=== PATIENT | female | born 2000 | race Caucasian/White ===

== ENCOUNTER 2024-01-15 15:09 | Emergency (ER) | payer OTHER, SELFPAY ==
[2024-01-15 15:21] VITALS: BP 119/68; PULSE 95; RESP 18; TEMP 36.6; O2SAT 100
[2024-01-15 15:53] LABS: EDSTREPNEGPOS1 Negative (Negative)
--- NOTE | 2024-01-15 15:53 | ED.GENADULT ---
HPI - General Adult General Chief complaint: Upper Respiratory Infection Stated complaint: Fever/Sore Throat Source: patient Mode of arrival: ambulatory Limitations: no limitations History of Present Illness HPI narrative: Pt presents for evaluation of sinus symptoms and sore throat. Symptom onset three days ago. Nasal discharge is thick yellow/green. She states her temperature at home was 101? F. She denies any nausea, vomiting, cough or SOB. No recent sick contacts to her knowledge. She took ibuprofen for her symptoms. She does vape an electronic cigarette. Related Data Home Medications Medication Instructions Recorded Confirmed levothyroxine 50 mcg tablet mcg 01/15/24 sertraline 50 mg tablet mg 01/15/24 Allergies Allergy/AdvReac Type Severity Reaction Status Date / Time No Known Allergies Allergy Unverified 12/05/12 18:53 Review of Systems Review of Systems: CONSTITUTIONAL: Reports fever. Denies chills, or sweats. EYES: Denies visual changes, redness, or discharge. ENT: Reports sore throat, sinus congestion, mucopurulent discharge from the nares. Denies otalgia CARDIOVASCULAR: Denies chest pain, palpitations, or edema. RESPIRATORY: Denies cough or dyspnea. GASTROINTESTINAL: Denies abdominal pain, nausea, vomiting, or diarrhea. GENITOURINARY: Denies dysuria or hematuria. SKIN: Denies rash or itching. MUSCULOSKELETAL: Denies back pain, joint pain, or myalgia. NEUROLOGIC: Denies headache, numbness, dizziness, or weakness. PSYCHIATRIC: Denies anxiety or depression. [facility] Past Medical History Medical History No pertinent past medical history Surgical History Surgical History (Updated 01/15/24 @ 15:59 by ES Pride, ) No pertinent past surgical history Family History Family History Mother Family history non-contributory Social History Social History Smoking status: Current every day smoker Tobacco type: e-cigarettes/vaping Substance use: never Do You Feel Safe in your Home?: Yes Living arrangements: alone Gender identity (if verbalized by the patient): Female Spiritual care concerns: No Exam Narrative: GENERAL: Well-appearing, well-nourished, and in no acute distress. HEAD: Normocephalic, atraumatic. EYES: PERRLA and EOMI. ENT: There is frontal and bilateral maxillary sinus tenderness. There is thick yellow drainage in bilateral nares. Mucous membranes moist. Bilateral tonsillar enlargement and erythema. No exudate. Bilateral TMs pearly rodríguez nonbulging NECK: Supple. No adenopathy or masses. No carotid bruits or JVD CHEST: Clear to auscultation. No respiratory distress. No wheezes rales or rhonchi HEART: Regular rate and rhythm. No murmur heard. Normal peripheral pulses. ABDOMEN: Soft, nontender, nondistended, normal active bowel sounds. EXTREMITIES: Normal range of motion. No edema. SKIN: Warm, dry, no rash. NEURO: No focal deficits. Alert and oriented x3. PSYCH: Normal mood and affect. Course Course Emergency Course: This is a 23-year-old female who presented for evaluation of sore throat and sinus symptoms. She meets criteria for ABRS based upon mucopurulent nature of the discharge and fever. Will treat with Augmentin. Strep was negative. Will send throat culture. Follow-up with primary provider. Advised not to vape. Go to the ER for worsening symptoms. Pt in agreement with plan of care. Level of Care: Express Care Visit Vital Signs Vital signs: Vital Signs Temperature 36.6 C 01/15/24 15:21 Pulse Rate 95 01/15/24 15:21 Respiratory Rate 18 01/15/24 15:21 Blood Pressure 119/68 01/15/24 15:21 Pulse Oximetry 100 01/15/24 15:21 Oxygen Delivery Room Air 01/15/24 15:21 Temperature 36.6 C 01/15/24 15:21 Pulse Rate 95 01/14/
== END 2024-01-15 15:57 | disposition home or self-care (01) ==
PROVIDERS: Emergency Provider Nurse Practitioner; PCP Nurse Practitioner
DX: J01.90 Acute sinusitis, unspecified (principal); J02.9 Acute pharyngitis, unspecified; F17.290 Nicotine dependence, other tobacco product, uncomplicated
CPT/HCPCS: 87081; 87880; 99213; G0463

== ENCOUNTER 2024-09-01 16:51 | Emergency (ER) | payer OTHER, SELFPAY ==
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
[2024-09-01 17:08] VITALS: BP 134/94; PULSE 96; RESP 16; TEMP 37.1; O2SAT 100
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
--- OUTSIDE RECORDS SUMMARY | 2024-09-01 17:26 | XMS_ITS | Referral Summary ---
Author Organization [facility] Address [address] [place] [address] Care Team Providers Care Life Agent Name Role Phone Anna Toledo NP Primary Care Provider [phone] Allergies No known active allergies Medications levothyroxine (SYNTHROID) 50 mcg tabletIndications :Hypothyroidism, unspecified type Take 1 tablet (50 mcg total) by mouth daily 90 tablet 5 05/16/19 26 Active atomoxetine (STRATTERA) 40 mg capsuleIndication s:Attention-Defic it Hyperactivity Disorder Take 1 capsule (40 mg total) by mouth daily 30 capsule 11 5 05/16/19 26 Active sertraline (ZOLOFT) 50 mg tabletIndications :Anxiety,Mild episode of recurrent major depressive disorder Take 1 tablet (50 mg total) by mouth daily 90 tablet 1 5 08/05/19 26 Active sertraline (ZOLOFT) 50 mg tabletIndications :Anxiety,Mild episode of recurrent major depressive disorder Take 1 tablet (50 mg total) by mouth daily 90 tablet 1 4 08/05/19 25 Discontinu ed(Reorder ) Active Problems Problem Noted Date Diagnosed Date Attention deficit hyperactiv ity disorder (ADHD), predominantly inattentive type 07/31/2023 Assessment & Plan (07/31/2023 8:34 AM CDT): Not well controlled 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 noticed that she is having difficulty staying focused and completing tasks Difficulty taking a long list of directions and following through Start Strattera 40 mg daily Follow up 3 months Hypothyroidism 05/01/2023 Assessment & Plan (05/01/2023 10:06 AM AUTOMOTIVE SALES REPRESENTATIVE): TSH elevated at 7.26 Start Levothyroxine 50 mcg daily Repeat Thyroid US to compare to 2019-cysts on left lobe Repeat TSH 3 months Vitamin D deficiency 08/16/2021 Anxiety 08/15/2021 Assessment & Plan (07/31/2023 8:28 AM CDT): Chronic, stable, well controlled Seeing results with increased dose Continue Sertraline 50 mg daily Assessment & Plan (05/01/2023 10:05 AM AUTOMOTIVE SALES REPRESENTATIVE): Stable, patient seeing improvement with medication Would like to try increasing medication to get better results Increase Sertraline 50 mg daily Follow up 3 months Assessment & Plan (03/21/2023 12:37 PM AUTOMOTIVE SALES REPRESENTATIVE): Not currently well-controlled; patient states she is always had anxiety Patient would like to start an antidepressant; states Zoloft has worked for her in the past. She does not want to take a mood stabilizer at this time Start sertraline 25 mg daily; discussed potentially adding BuSpar at next visit Follow-up 6-8 weeks Assessment & Plan (2021 2:17 PM CDT): Patient reiterated no suicidal thoughts at this time; take medication as directed; contact 911 and go to the ER if becomes suicidal; discussed side effects of medication with patient; encouraged healthy diet and exericise; encouraged patient to see a counselor HPI: Condition is not at goal. Pt was in ER for suicidal ideation on 09/13/2021. Nothing precipitated the episode, she just felt really down. A&P: Discussed/ordered labs, encouraged healthy, low carbohydrate lifestyle and at least 150min/week of exercise, At last office visit we trial patient on sertraline 50 mg daily. She at first felt like she had more energy, but not to a manic level. Then 2 wks later she felt really down again. We will increase the sertraline to 100mg daily. We will also add in lamictal. We will wean up your dose. Start at 25mg daily x 2 wks, then 50mg x 2 wks, then 100mg x 2 wks, then return to clinic where will up to 150mg as maintenance dose. Recommend seeing [facility] for counseling/psychiatrist. also instructed patient to work on biofeedback I would like you to work on biofeedback. You can download an dang on your phone. Examples would be headspace, calm. Please work on this every day. It is similar to if you were a musician with a big performance coming up. You would practice your instrument every day so that on the day of the big performance, you don't even have to think about playing. This works the same way for using the biofeedback to bring you down from those high stress/anxiety moments. If you practice using the biofeedback skills daily, it will become a second nature and you will be able to help yourself more effectively. Assessment & Plan (08/15/2021 12:55 PM CDT): Patient reiterated no suicidal thoughts at this time; take medication as directed; contact 911 and go to the ER if becomes suicidal; discussed side effects of medication with patient; encouraged healthy diet and exericise; encouraged patient to see a counselor HPI: Condition is not at/near goal A&P: pt has failed on lexapro in the past. We will trial on sertraline 50mg daily. I would like you to work on biofeedback. You can download an dang on your phone. Examples would be headspace, calm, [id number], Personal Arvin. Please work on this every day. It is similar to if you were a musician with a big performance coming up. You would practice your instrument every day so that on the day of the big performance, you don't even have to think about playing. This works the same way for using the biofeedback to bring you down from those high stress/anxiety moments. If you practice using the biofeedback skills daily, it will become a second nature and you will be able to help yourself more effectively. Mild episode of recurrent major depressive disor wade 08/15/2021 Assessment & Plan (07/31/2023 8:33 AM CDT): Chronic, stable, well controlled Seeing results with increased dose Continue Sertraline 50 mg daily Assessment & Plan (05/01/2023 10:05 AM AUTOMOTIVE SALES REPRESENTATIVE): Stable, patient seeing improvement with medication Would like to try increasing medication to get better results Increase Sertraline 50 mg daily Follow up 3 months Assessment & Plan (03/21/2023 12:37 PM AUTOMOTIVE SALES REPRESENTATIVE): Not currently well-controlled; patient states she is always had anxiety Patient would like to start an antidepressant; states Zoloft has worked for her in the past. She does not want to take a mood stabilizer at this time Start sertraline 25 mg daily; discussed potentially adding BuSpar at next visit Follow-up 6-8 weeks Assessment & Plan (2021 2:17 PM CDT): Patient reiterated no suicidal thoughts at this time; take medication as directed; contact 911 and go to the ER if becomes suicidal; discussed side effects of medication with patient; encouraged healthy diet and exericise; encouraged patient to see a counselor HPI: Condition is not at goal. Pt was in ER for suicidal ideation on 09/13/2021. Nothing precipitated the episode, she just felt really down. A&P: Discussed/ordered labs, encouraged healthy, low carbohydrate lifestyle and at least 150min/week of exercise, At last office visit we trial patient on sertraline 50 mg daily. She at first felt like she had more energy, but not to a manic level. Then 2 wks later she felt really down again. We will increase the sertraline to 100mg daily. We will also add in lamictal. We will wean up your dose. Start at 25mg daily x 2 wks, then 50mg x 2 wks, then 100mg x 2 wks, then return to clinic where will up to 150mg as maintenance dose. Recommend seeing [facility] for counseling/psychiatrist. also instructed patient to work on biofeedback I would like you to work on biofeedback. You can download an dang on your phone. Examples would be headspace, calm. Please work on this every day. It is similar to if you were a musician with a big performance coming up. You would practice your instrument every day so that on the day of the big performance, you don't even have to think about playing. This works the same way for using the biofeedback to bring you down from those high stress/anxiety moments. If you practice using the biofeedback skills daily, it will become a second nature and you will be able to help yourself more effectively. Assessment & Plan (08/15/2021 12:51 PM CDT): Patient reiterated no suicidal thoughts at this time; take medication as directed; contact 911 and go to the ER if becomes suicidal; discussed side effects of medication with patient; encouraged healthy diet and exericise; encouraged patient to see a counselor HPI: Condition is not at/near goal A&P: pt has failed on lexapro in the past. We will trial on sertraline 50mg daily. I would like you to work on biofeedback. You can download an dang on your phone. Examples would be headspace, calm, [id number], Personal Arvin. Please work on this every day. It is similar to if you were a musician with a big performance coming up. You would practice your instrument every day so that on the day of the big performance, you don't even have to think about playing. This works the same way for using the biofeedback to bring you down from those high stress/anxiety moments. If you practice using the biofeedback skills daily, it will become a second nature and you will be able to help yourself more effectively. PTSD (post-traumatic stress disorder) 02/09/2017 Assessment & Plan (2021 2:17 PM CDT): Patient reiterated no suicidal thoughts at this time; take medication as directed; contact 911 and go to the ER if becomes suicidal; discussed side effects of medication with patient; encouraged healthy diet and exericise; encouraged patient to see a counselor HPI: Condition is not at goal. Pt was in ER for suicidal ideation on 09/13/2021. Nothing precipitated the episode, she just felt really down. A&P: Discussed/ordered labs, encouraged healthy, low carbohydrate lifestyle and at least 150min/week of exercise, At last office visit we trial patient on sertraline 50 mg daily. She at first felt like she had more energy, but not to a manic level. Then 2 wks later she felt really down again. We will increase the sertraline to 100mg daily. We will also add in lamictal. We will wean up your dose. Start at 25mg daily x 2 wks, then 50mg x 2 wks, then 100mg x 2 wks, then return to clinic where will up to 150mg as maintenance dose. Recommend seeing [facility] for counseling/psychiatrist. also instructed patient to work on biofeedback I would like you to work on biofeedback. You can download an dang on your phone. Examples would be headspace, calm. Please work on this every day. It is similar to if you were a musician with a big performance coming up. You would practice your instrument every day so that on the day of the big performance, you don't even have to think about playing. This works the same way for using the biofeedback to bring you down from those high stress/anxiety moments. If you practice using the biofeedback skills daily, it will become a second nature and you will be able to help yourself more effectively. Immunizations Immunization Administration Dates Next Due DTaP, Unspecified 07/29/2004, 2,04/03/2000,01/27/2000 ,1999 HPV, Quadrivalent 12/02/2013,11/29/2012 Hep A, Pediatric 12/02/2013,11/29/2012 Hep B, Unspecified 07/02/2000,1999 HiB 12/28/2000,04/03/2000,01/27/2000 ,1999 IPV 07/29/2004,04/24/2001,01/27/2000 ,1999 Influenza, Unspecified 07/23/2023(Deferr ed: Patient Refused),03/21/2023(Deferred: Patient Refused),02/22/2023(Deferred: Patient Refused),01/21/2022(Deferred: Patient Refused),01/21/2022(Deferred: Patient Refused),01/21/2021(Deferred: Patient Refused),01/22/2020(Deferred: Patient Refused) MMR 07/29/2004,12/28/2000 Meningococcal B, OMV (Bexsero) 02/13/2019 Meningococcal Conjugate (Menveo) 01/03/2017,10/21 Pneumococcal, Unspecified 04/24/2001,2000, 04/03/2000 Tdap 11/16/2010 Social History Tobacco Use Types Packs/Day Years Used Date Smoking Tobacco: Former Cigarettes Q uit: 04/23/2023 Smokeless Tobacco: Never Comments:vape Alcohol Use Standard Drinks/Week Comments Not Currently 0 (1 standard drink = 0.6 oz pur e alcohol) [facility] [employer] Answer Date Recorded In the past 12 months has e [employer], gas, oil, or water [employer] threatened to shut off services in your home? No 07/31/2023 Humiliation, Afraid, Rape, and Kick questionnair e Answer Date Recorded Within the last year, have y ou been afraid of your partner or ex-partner? No 07/31/2023 Within the last year, have y ou been humiliated or emotionally abused in other ways by your partner or ex-partner? No Within the last year, have y ou been kicked, hit, slapped, or otherwise physically hurt by your partner or ex-partner? No 07/31/2023 Within the last year, have y ou been raped or forced to have any kind of sexual activity by your partner or ex-partner? No 07/31/2023 Social Connection and Isolation Panel [NHANES] A nswer Date Recorded In a typical week, how many times do you talk on the phone with family, friends, or neighbors? Twice a week 07/31/2023 How often do you get together with friends or re latives? Twice a week 07/31/2023 How often do you attend bahai or jainism serv ices? Never 07/31/2023 Do you belong to any clubs o r organizations such as bahai groups, unions, fraternal or athletic groups, or school groups? No 07/31/2023 How often do you attend meet ings of the clubs or organizations you belong to? Never 07/31/2023 Are you , , di vorced, , never , or living with a partner? Never 07/31/2023 AUDIT-C Answer Date Recorded Q1: How often do you have a drink containing alc ohol? 2-3 times a week 07/31/2023 Q2: How many drinks containi ng alcohol do you have on a typical day when you are drinking? 1 or 2 07/31/2023 Q3: How often do you have si x or more drinks on one occasion? Never 07/31/2023 Overall Financial Resource Strain (CARDIA) Answe r Date Recorded How hard is it for you to pa y for the very basics like food, housing, medical care, and heating? Not hard at all 07/31/2023 PHQ-2 Answer Date Recorded PHQ-2 Total Score (If total score is 3 or more points, staff should administer the PHQ-9) 0 07/31/2023 [facility] - Occupational Stress Questionnaire Answer Date Recorded Do you feel stress - tense, restless, nervous, or anxious, or unable to sleep at night because your mind is troubled all the time - these days? To some extent 07/31/2023 Exercise Vital Sign Answer Date Recorde d On average, how many days pe r week do you engage in moderate to strenuous exercise (like a brisk walk)? 5 days 07/31/2023 On average, how many minutes do you engage in exercise at this level? 60 min 07/31/2023 Hunger Vital Sign Answer Date Recorded Within the past 12 months, y ou worried that your food would run out before you got the money to buy more. Never true 07/31/19 24 Within the past 12 months, t he food you bought just didn't last and you didn't have money to get more. Never true 07/31/2023 PRAPARE - Transportation Answer Date Re corded In the past 12 months, has l ack of transportation kept you from medical appointments or from getting medications? No 12/2023 In the past 12 months, has l ack of transportation kept you from meetings, work, or from getting things needed for daily living? No 07/31/2023 Housing Stability Vital Sign Answer Eleazar e Recorded In the last 12 months, was t here a time when you were not able to pay the mortgage or rent on time? No 07/31/2023 In the last 12 months, how many places have you lived? 1 07/31/2023 In the last 12 months, was t here a time when you did not have a steady place to sleep or slept in a senior living (including now)? No 07/31/2023 PHQ-9 Answer Date Recorded PHQ-9 Total Score 0 07/31/2023 Comments No Sex and Gender Information Value Date Recorded Sex Assigned at Not on file Legal Sex Female 3:09 AM AUTOMOTIVE SALES REPRESENTATIVE Gender Identity Not on file Sexual Orientation Not on file Last Filed Vital Signs Vital Sign Reading Time Taken Comments Blood Pressure 116/72 07/31/2023 8:05 AM CDT Pulse 70 07/31/2023 8:05 AM CDT Temperature 36.8 C (98.2 F) 07/31/2023 8:05 AM CDT Respiratory Rate 16 07/31/2023 8:05 AM CDT Oxygen Saturation 99% 07/31/2023 8:05 AM CDT Inhaled Oxygen Concentration - - Weight 68.1 kg (150 lb 3.2 oz) 07/31/2023 8:05 A M CDT Height 170.2 cm (5' 7.01 ) 07/31/2023 8:05 AM CD T Body Mass Index 23.52 07/31/2023 8:05 AM CDT Plan of Treatment Not on file Procedures Procedure Name Priority Date/Time Associated Diagnosis Comments HEPATITIS C ANTIBODY Routine 08/15/2021 1:23 PM CDT Encounter for hepatitis C screening test for low risk patient from Last 3 Months or Most Recently Relevant to Health Maintenance Results * Hepatitis C antibody (08/15/2021 1:23 PM CDT) Hep C Ab Nonreactive Nonreactive JESSICA KAUFFMAN ([place]) Comment: Interpretive Data Nonreactive: Antibodies to HCV not detected. Does NOT exclude the possibility of recent exposure to HCV. Equivocal: Equivocal for HCV antibodies. Supplemental molecular testing will be automatically performed to determine infection status in accordance with current CDC screening recommendations. Reactive: Positive for HCV antibodies. This may represent current or past HCV infection. Supplemental molecular testing will be automatically performed to determine current infection status in accordance with current CDC screening recommendations. Interpretive data was last revised on 2019. Testing performed by: [facility], [address] [place] [address]., [id number] Blood 08/15/2021 1:23 PM CDT 08/15/2021 7:37 PM CDT Lauren Holman NP LAB MICROBIOLOGY - GENERAL ORDERABLES Final Result [facility] ([place] [address] [facility] Department [place] [address] from Last 3 Months or Most Recently Relevant to Health Maintenance Insurance [employer] OOS [employer] Member Subscriber Plan / Payer (Ef fective 2018-Present) Name:Ema Murphy Relation to Subscriber:Other Relationship Name:MAXINE MURPHY Date of :1967 (Home) Address: [address] [place] [id number] Payer ID:[id number] (NAIC) Type:nScaled Address: [address] [facility] HMO/PPO Address: [address] [address] [place] [address] [employer] OOS [facility] H[facility]/PPO Address: [facility] [id number] [place] [address] Care Teams Life Agent Relationship Specialty Start Date End Date Anna Toledo NP PCP - General Family Medicine 03/21/23
--- OUTSIDE RECORDS SUMMARY | 2024-09-01 17:26 | XMS_ITS | Clinical Summary ---
Author Organization [facility] Address [address] [place] [address] Phone Care Team Providers Care Cloth Cutting Machine Operator Name Role Phone Alicia Rader MD Primary Care Provider [phone] Allergies No known active allergies Medications escitalopram (LEXAPRO) 10 MG Tablet Take 20 mg by mouth daily. 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[employer] Not on file Not on file Not on file Last Filed Vital Signs Vital Sign Reading Time Taken Comments Blood Pressure 120/62 10/08/2020 12:04 PM CDT Pulse 83 10/08/2020 12:04 PM CDT Temperature 36.5 C (97.7 F) 10/08/2020 12:04 PM CDT Respiratory Rate 16 10/08/2020 12:04 PM CDT Oxygen Saturation 97% 10/08/2020 12:04 PM CDT Inhaled Oxygen Concentration - - Weight - - Height - - Body Mass Index - - Plan of Treatment Health Maintenance Due Date Last Done Comments Hepatitis C Virus (HCV) Screening 1999 Hepatitis B Immunization (3 of 3 - 3-dose series) 08/27/2000 07/02/2000, 1999 Pap Smear 09/25/2020 Influenza Immunization (#1) 2023 SARS-COV-2 Immunization ( season) 2023 Respiratory Syncytial Virus (RSV) Immunization (Adult) (1 - 1-dose 75+ series) 09/25/2074 Pneumococcal Immunization Combined Aged Out 04/24/2001, 2000, 04/03/2000 No longer eligible based on patient's age to complete this topic DTaP/Tdap/Td Immunization Discontinued 2010, 07/29/2004, 04/24/2001, Additional history exists TdaP Immunization Completed 11/16/2010 Human Papillomavirus (HPV) Immunization Completed 12/02/2013, 11/29/2012 Meningococcal Immunization (ACWY) Completed 01/03/2017, 11/02/2011 Meningococcal B Immunization Discontinued 02/13/2019 Rotavirus Immunization Aged Out No lo nger eligible based on patient's age to complete this topic Insurance [facility] Care Teams Cloth Cutting Machine Operator Relationship Specialty Start Date End Date Alicia Rader MD [address] [place] [address] [address] PCP - General Pediatrics 02/08/17
--- OUTSIDE RECORDS SUMMARY | 2024-09-01 17:26 | XMS_ITS | Clinical Summary ---
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 have noticed that she is having difficulty staying focused and completing tasks Difficulty taking a long list of directions and following through Start Strattera 40 mg daily Follow up 3 months Hypothyroidism 05/01/2023 Assessment & Plan (05/01/2023 10:06 AM GYNAECOLOGICAL ONCOLOGIST): TSH elevated at 7.26 Start Levothyroxine 50 mcg daily Repeat Thyroid US to compare to 2019-cysts on left lobe Repeat TSH 3 months Vitamin D deficiency 08/16/2021 Anxiety 08/15/2021 Assessment & Plan (07/31/2023 8:28 AM CDT): Chronic, stable, well controlled Seeing results with increased dose Continue Sertraline 50 mg daily Assessment & Plan (05/01/2023 10:05 AM GYNAECOLOGICAL ONCOLOGIST): Stable, patient seeing improvement with medication Would like to try increasing medication to get better results Increase Sertraline 50 mg daily Follow up 3 months Assessment & Plan (03/21/2023 12:37 PM GYNAECOLOGICAL ONCOLOGIST): Not currently well-controlled; patient states she is [...] to 150mg as maintenance dose. Recommend seeing [facility] for counseling/psychiatrist. also instructed patient to [...] your phone. Examples would be headspace, calm, [id number], Personal Arvni. Please work on this every day. It [...] daily Assessment & Plan (05/01/2023 10:05 AM GYNAECOLOGICAL ONCOLOGIST): Stable, patient seeing improvement with medication Would like to try increasing medication to get better results Increase Sertraline 50 mg daily Follow up 3 months Assessment & Plan (03/21/2023 12:37 PM GYNAECOLOGICAL ONCOLOGIST): Not currently well-controlled; patient states she is [...] to 150mg as maintenance dose. Recommend seeing [facility] for counseling/psychiatrist. also instructed patient to [...] your phone. Examples would be headspace, calm, [id number], Personal Arvin. Please work on this every [...] to 150mg as maintenance dose. Recommend seeing [facility] for counseling/psychiatrist. also instructed patient to [...] 01/03/2017,10/21 Pneumococcal, Unspecified 04/24/2001,2000, 04/03/2000 Tdap 11/16/2010 Surgical History Surgery Date Site/Laterality Comments TRIGGER FINGER RELEASE thumb Medical History Medical History Date Comments Depression Anxiety Family History Medical History Relation Name Comments Diabetes Mother Kidney disease Mother Relation Name Status Comments Brother 1 Alive Brother 2 Alive Father Alive Mother Alive Social History Tobacco Use Types Packs/Day Years Used Date Smoking Tobacco: Former Cigarettes Q uit: 04/23/2023 Smokeless Tobacco: Never Comments:vape Alcohol Use Standard Drinks/Week Comments Not Currently 0 (1 standard drink = 0.6 oz pur e alcohol) [facility] Answer Date Recorded In the past 12 months has e VODECL[employer], gas, oil, or water Incent[employer] threatened to shut off services in your [...] week 07/31/2023 How often do you attend faith or episcopal serv ices? Never 07/31/2023 Do you belong to any clubs o r organizations such as faith groups, unions, fraternal or athletic groups, or [...] staff should administer the PHQ-9) 0 07/31/2023 [facility] - Occupational Stress Questionnaire Answer Date Recorded [...] place to sleep or slept in a long term (including now)? No 07/31/2023 PHQ-9 Answer Date Recorded PHQ-9 Total Score 0 07/31/2023 Comments No Sex and Gender Information Value Date Recorded Sex Assigned at Not on file Legal Sex Female 3:09 AM GYNAECOLOGICAL ONCOLOGIST Gender Identity Not on file Sexual Orientation Not on file Obstetrics History Last Filed Vital Signs Vital Sign Reading [...] 07/31/2023 8:05 AM CDT Plan of Treatment Health Maintenance Due Date Last Done Comments Cervical Cancer Screening 1999 Varicella Vaccines (1 of 2 - 13+ 2-dose series) 09/25/2012 DTaP/Tdap/Td Vaccine (7 - Td or Tdap) 11/16/2020 11/16/2010, 07/29/2004, 04/24/2001, Additional history exists Regular Well Visit/Exam 18-64 03/21/2024 03/21/2023 Depression Screening 07/30/2024 07/31/2023, 03/21/2023, 2021, Additional history exists Influenza Vaccine (Season Ended) 2024 Hepatitis B Screening Completed 07/02/2000, 000 Pneumococcal vaccine <65 Aged Out 002, 2000, 04/03/2000 No longer eligible based on patient's age to complete this topic HPV Vaccines Completed 12/02/2013, 11/29/2012 Hepatitis C Screening Completed 08/15/2021 Procedures Procedure Name Priority Date/Time Associated Diagnosis [...] last revised on 2019. Testing performed by: [facility], [address] [place] [address]., [id number] Blood 08/15/2021 1:23 PM CDT 08/15/2021 7:37 PM CDT Lauren Holman NP LAB MICROBIOLOGY - GENERAL ORDERABLES Final Result JESSICA KAUFFMAN (TYRONE) 1 [facility] Department [place] [address] from Last 3 Months or Most Recently Relevant to Health Maintenance Insurance [employer] OOS ANTH ACCESS CHOICE PLUS [facility] HEALTH BLUE ACCESS OOS [facility] NEXUS Care Teams Dermatopathologist Relationship Specialty Start Date End Date Anna Toledo NP PCP - General Family Medicine 03/21/23
== END 2024-09-01 18:07 | disposition home or self-care (01) ==
PROVIDERS: Emergency Provider Registered Nurse; PCP Nurse Practitioner
DX: M54.2 Cervicalgia (principal); V43.53XA Car driver injured in collision with pick-up truck in traffic accident, initial encounter; E03.9 Hypothyroidism, unspecified; F17.290 Nicotine dependence, other tobacco product, uncomplicated
CPT/HCPCS: 72040; 99213; G0463